=== PATIENT | male | born 1945 | race Caucasian/White ===

== ENCOUNTER → 2016-04-17 | Outpatient (CLI) | payer BC ==
[~2016-04-17] MED LIST: GFNSR600 PO; [UNRECOGNIZED DRUG - CODE] PO
[2016-04-17 17:40] LABS: URINE APPEARANCE CLEAR (CLEAR); URINE BILIRUBIN NEG (NEG); URINE COLOR YELLOW; URINE NITRITE NEG (NEG); URINE SPECIFIC GRAVITY 1.017 (1.000-1.030); UROBILINOGEN NEG (NEG); ZZUR CULT IF INDIC CLEAN CATCH NO
[2016-04-17 17:54] LABS: MANUAL MICROSCOPIC REQUIRED? NO; REVIEW REQ? NO
== END | disposition home or self-care (01) ==
LOC: C.LAB1850 16:05
PROVIDERS: ATTEND Internal Medicine
DX: R30.0 Dysuria (principal)

== ENCOUNTER → 2017-05-02 | Outpatient (CLI) | payer BC ==
[2017-05-02 12:08] LABS: BASO % 0.8 %; BASO ABS # 0.06 K/uL (0-0.2); EOS % 3.1 %; EOS ABS # 0.22 K/uL (0-0.5); HEMATOCRIT 44.6 % (42-52); HEMOGLOBIN 15.5 g/dL (14.0-18.0); IG# 0.02 K/uL (0.00-0.02); LYMPH % 38.7 %; LYMPH ABS # 2.76 K/uL (1.2-3.4); MEAN CELL VOLUME 90.8 fL (80-100); MEAN CORPUSCULAR HEMOGLOBIN 31.6 pg (25-34); MEAN CORPUSCULAR HGB CONC 34.8 g/dl (32-36); MEAN PLATELET VOLUME 10.3 fL (7.4-10.4); MONO % 11.8 %; MONO ABS # 0.84 K/uL (0.11-0.59); NEUT % 45.3 %; NEUT ABS # 3.24 K/uL (1.4-6.5); PLATELET COUNT 235 K/uL (130-400); RED CELL DISTRIBUTION WIDTH CV 13.2 % (11.5-14.5); RED CELL DISTRIBUTION WIDTH SD 43.3 fL (36.4-46.3); WHITE BLOOD COUNT 7.14 K/uL (4.8-10.8)
[2017-05-02 12:33] LABS: BLOOD UREA NITROGEN 21 mg/dl (7-18); CALCIUM 9.8 mg/dl (8.5-10.1); CARBON DIOXIDE 32 mmol/L (21-32); CHOLESTEROL 293 mg/dl (0-200); CREATININE 1.14 mg/dl (0.60-1.40); GLUCOSE 113 mg/dl (70-99); POTASSIUM 3.4 mmol/L (3.5-5.1); SODIUM 138 mmol/L (136-145)
[2017-05-02 12:43] LABS: LDL CHOLESTEROL CALCULATED 206 mg/dl
[2017-05-02 12:56] LABS: HEMOGLOBIN A1C 5.9 % (4.5-5.6)
== END | disposition home or self-care (01) ==
LOC: C.LAB1850 10:06
PROVIDERS: ATTEND Internal Medicine
DX: E03.9 Hypothyroidism, unspecified (principal); I10 Essential (primary) hypertension

== ENCOUNTER → 2017-07-10 | Outpatient (CLI) | payer BC ==
[2017-07-10 10:17] LABS: BASO % 0.8 %; BASO ABS # 0.06 K/uL (0-0.2); EOS % 3.4 %; EOS ABS # 0.25 K/uL (0-0.5); HEMATOCRIT 42.3 % (42-52); HEMOGLOBIN 14.7 g/dL (14.0-18.0); IG# 0.04 K/uL (0.00-0.02); LYMPH % 43.8 %; LYMPH ABS # 3.24 K/uL (1.2-3.4); MEAN CELL VOLUME 90.6 fL (80-100); MEAN CORPUSCULAR HEMOGLOBIN 31.5 pg (25-34); MEAN CORPUSCULAR HGB CONC 34.8 g/dl (32-36); MEAN PLATELET VOLUME 9.4 fL (7.4-10.4); MONO % 10.8 %; NEUT % 40.7 %; NEUT ABS # 3.01 K/uL (1.4-6.5); PLATELET COUNT 225 K/uL (130-400); RED CELL DISTRIBUTION WIDTH CV 13.1 % (11.5-14.5); RED CELL DISTRIBUTION WIDTH SD 42.8 fL (36.4-46.3)
== END | disposition home or self-care (01) ==
LOC: C.LAB1850 09:23
PROVIDERS: ATTEND Internal Medicine
DX: E78.00 Pure hypercholesterolemia, unspecified (principal)

== ENCOUNTER 2024-05-06 06:36 | Observation (INO) ==
--- NOTE | 2024-04-07 12:46 | PAT Medication Instructions ---
Medication Instructions Date of Service April 07, 2024 Home Medications Medication Instructions Recorded azelastine 137 mcg (0.1 %) nasal 1 spray intranasal BID #30 mL 03/21/24 spray xauhhjzw-kwc-njsfue 5 mg-zeaxanth 1 mg-bilberry 7.5 mg-herbal capsule (Macular Health Formula) 1 cap PO QAM azelastine 137 mcg (0.1 %) nasal spray 1 spray intranasal BID atorvastatin 40 mg tablet (Lipitor) 40 mg PO HS fluticasone propionate 50 mcg/actuation nasal spray,suspension (Flonase Allergy Relief) 2 spray intranasal DAILY lubiprostone 8 mcg capsule (Amitiza) 8 mcg PO DAILY PRN Constipation olmesartan 20 mg tablet 20 mg PO QAM sildenafil 100 mg tablet (Viagra) 100 mg PO DAILY PRN sexual activity STOP taking 2 weeks before surgery (or as soon as possible if surgery is within 2 weeks) [id number] 5 mg-zeaxanth 1 mg-bilberry 7.5 mg-herbal capsule (Macular Health Formula) 1 cap PO QAM DO NOT take the morning of surgery lubiprostone 8 mcg capsule (Amitiza) 8 mcg PO DAILY PRN Constipation olmesartan 20 mg tablet 20 mg PO QAM sildenafil 100 mg tablet (Viagra) 100 mg PO DAILY PRN sexual activity Take morning of surgery With a small sip of water, OTHERWISE NOTHING TO EAT OR DRINK AFTER MIDNIGHT: azelastine 137 mcg (0.1 %) nasal spray 1 spray intranasal BID fluticasone propionate 50 mcg/actuation nasal spray,suspension (Flonase Allergy Relief) 2 spray intranasal DAILY Take evening before surgery azelastine 137 mcg (0.1 %) nasal spray 1 spray intranasal BID atorvastatin 40 mg tablet (Lipitor) 40 mg PO HS lubiprostone 8 mcg capsule (Amitiza) 8 mcg PO DAILY PRN Constipation (if needed) Other Notes If you have any questions please call us at [phone] or [phone] or [phone] or [phone]
--- NOTE | 2024-04-16 15:06 | Anesthesiology Consultation ---
Date of Service April 16, 2024 Assessment & Plan (1) Encounter for pre-operative examination: Chart Review Chart Review: Acceptable Risk for Surgery and Patient seen in Pre Admission Testing Pt currently scheduled as 23 hours observation. If surgeon decides to change patient to Same Day Joint, patient would be acceptable risk for TKA, pending patient is motivated, has good support and surgeon's office completes Same Day Joint Program preop requirements. Per PAT appt on 04/16/24, no recent illness/disease exposures, or recent illness/disease positive tests. Sinus pressure, headache, dizziness- currently on abx- symptoms mildly improved but still present. Will follow up with ENT/PCP. Will leave to surgeon's discretion if preop Covid testing needed. Patient educated that symptoms will need resolved by DOS (patient voices understanding and will call if symptoms persist or get worse) History Surgery Operation Date: 05/06/24 08:50 Proposed Procedures p Right Total Knee Arthroplasty - Anibal Mercado MD Height/Weight Height: 5 ft 7 in Weight: 85.6 kg Allergies Allergy/AdvReac Type Severity Reaction Status Date / Time NSAIDS (Non-Steroidal AdvReac Severe caused Verified 04/07/24 11:54 Anti-Inflamma fluid overload Medications Home Medications Medication Instructions Recorded Confirmed Last Taken qtbdccue-lev-moggue 5 mg-zeaxanth 1 cap PO QAM 10/01/20 04/07/24 12/08/22 1 mg-bilberry 7.5 mg-herbal capsule ([employer] [facility] Formula) azelastine 137 mcg (0.1 %) nasal 1 spray intranasal BID #30 mL 03/21/24 04/07/24 Unknown spray atorvastatin 40 mg tablet (Lipitor) 40 mg PO HS 04/07/24 04/07/24 Unknown fluticasone propionate 50 2 spray intranasal DAILY 04/07/24 04/07/24 Unknown mcg/actuation nasal spray,suspension (Flonase Allergy Relief) lubiprostone 8 mcg capsule 8 mcg PO DAILY PRN Constipation 04/07/24 04/07/24 Unknown (Amitiza) olmesartan 20 mg tablet 20 mg PO QAM 04/07/24 04/07/24 Unknown sildenafil 100 mg tablet (Viagra) 100 mg PO DAILY PRN sexual activity 04/07/24 04/07/24 Unknown Past Medical History Medical History Chronic rhinitis Constipation Dysphagia "1-2x a week" as per patient no recent issues per patient at 04/16/24 PAT appt Hearing loss no hearing aid History of anesthesia reaction unable to void following hernia surgery, required cath/stent HLD (hyperlipidemia) HTN (hypertension) Hx of nephrotic syndrome 2012 - PCP Monitoring - no issues since Macular degeneration "Pre" as per patient Osteoarthritis Prediabetes Trochanteric bursitis Intermittent issues Exercise / Class Metabolic Activity II 4-5 Yardwork/Stairs/Walk up hill (one flight of stairs - no chest pain or SOB ) Past Family History Family History Father COPD (chronic obstructive pulmonary disease) Other No family history of adverse response to anesthesia Denies family history of Cancer Past Surgical History Surgical History H/O right inguinal hernia repair x 2 History of incision and drainage History of tonsillectomy Hx of colonoscopy (2021) Hx of LASIK Past Anesthesia History No Hx of Anesthesia Complications (with exception to urinary retention with previous hernia surgery ) and No Family Hx of Anesthesia Complications History of PONV No Hx of PONV and Hx of Motion Sickness (on boats ) Social History Smoking Status: Never smoker Do You Dip or Chew Tobacco: No Hx Alcohol Use: No Hx Substance Use: No substance use type: does not use Review of Systems - Chronic sinus/allergy issues- chronic nasal congestion- aggravated the past few weeks with cough- currently on abx- minimal improvement- following with PCP and ENT - Rare reflux- diet dependent Patient denies chest pain, shortness of breath, dyspnea on exertion, wheezing, palpitations. No hx of seizures, stroke, CT, apnea/snoring. No hx of blood clots or blood transfusions Physical Exam Vital Signs VITALS BP 112/71 P 57 TEMP 97.8 SP02 94% RESP 16 Constitutional no acute distress ENMT Mouth: no TMJ clicking Thyromental Distance: > or= 3.5 Finger Breadths (3.5) Mallampati Class: II Neck + limited neck extension (mild) Respiratory normal respiratory effort; no respiratory distress Auscultation: lungs clear to auscultation bilaterally; no wheezes Cardiovascular Rate/Rhythm: regular rate and regular rhythm Heart Sounds: no murmur Vessels: no carotid bruit Musculoskeletal Spine: + pain with cervical ROM (mild) Extremities: extremities normal to inspection Psychiatric Orientation: alert Lab Results Anesthesia Preop Results Results Anesthesia Widget: WBC 7.54 K/ul (4.8-10.8) 04/16/24 Hgb 14.0 g/dl (14.0-18.0) 04/16/24 Hct 42.0 % (42.0-52.0) 04/16/24 Plt 222 K/uL (130-400) 04/16/24 Na 141 mmol/L (136-145) 04/16/24 K 4.4 mmol/L (3.5-5.1) 04/16/24 Cl 108 mmol/L (98-107) H 04/16/24 CO2 26 mmol/L (21-32) 04/16/24 BUN 23 mg/dl (6-23) 04/16/24 Creat 1.10 mg/dl (0.6-1.4) 04/16/24 Glucose Level 101 mg/dl (70-99(Fasting)) H 04/16/24 PT 10.5 Seconds (9.0-12.0) 04/16/24 PTT 27 Seconds (21-31) 04/16/24 INR 1.0 (0.9-1.1) 04/16/24 HA1c 6.1 % (4.5-5.6) H 03/17/24 Urine Color Yellow 03/17/24 Urine Appearance Clear (Clear) 03/17/24 Urine pH 5.5 (4.5-7.5) 03/17/24 Urine Specific [place] 1.020 (1.000-1.030) 03/17/24 Urine Protein Negative (Negative) 03/17/24 Urine Glucose (UA) Negative (Negative) 03/17/24 Urine Ketones Negative (Negative) 03/17/24 Urine Blood Negative (Negative) 03/17/24 Urine Nitrite Negative (Negative) 03/17/24 Urine Bilirubin Negative (Negative) 03/17/24 Urine Urobilinogen Negative (Negative) 03/17/24 Urine Leukocyte Esterase Negative (Negative) 03/17/24 Blood Type A Positive 04/16/24 Antibody Screen NEGATIVE 04/16/24 Testing Electrocardiogram Date: 04/16/24 SB with 1st degree AVB at 52bpm Otherwise normal EKG per cardio Chest X-Ray Date: 04/16/24 Findings: + NAD
--- NOTE | 2024-05-01 13:37 | History & Physical Report ---
Date of Service May 01, 2024 Assessment & Plan (1) Osteoarthritis of knees, bilateral: 78-year-old male with bilateral knee DJD the right side more symptomatic than the left. Is failed conservative treatment. The shots do still help the left knee but not the right. He would like to proceed with right knee replacement. Plan: Working to take him to the operating room and do a right knee replacement. The [place] this procedure explained and he understands. Informed consent was obtained. He is got some borderline kidney function. Were any use Xarelto for DVT prophylaxis to eliminate any toxicity to the kidneys. He is planned to be discharged to home with some home health. He has a significant other can assist in his care. (2) Recurrent sinus infections: (3) Mixed hyperlipidemia: (4) Prediabetes: History of Present Illness Chief Complaint: . Right knee pain. Primary Care Provider: Brittany Cahney MD . The patient is a 78-year-old gentleman who presents for surgical treatment his right knee. Is got a long history of bilateral knee pain and discomfort describes gotten worse over the past several years. Has been following with injections intermittently which would become less successful. She has had both both steroid shots and viscosupplementation. They seem to help the left knee a bit more than the right. Pain is mostly medial. The more he is up and onto more it hurts. Seems like his pain has been progressing. He would like to have his knees fixed. Allergies Allergy/AdvReac Type Severity Reaction Status Date / Time NSAIDS (Non-Steroidal AdvReac Severe caused Verified 04/07/24 11:54 Anti-Inflamma fluid overload Home Medications Medication Instructions Recorded Confirmed Type nchxbodh-zfh-oxrdkr 5 mg-zeaxanth 1 cap PO QAM 10/01/20 04/07/24 History 1 mg-bilberry 7.5 mg-herbal capsule (Macular Health Formula) azelastine 137 mcg (0.1 %) nasal 1 spray intranasal BID #30 mL 03/21/24 04/07/24 Rx spray atorvastatin 40 mg tablet (Lipitor) 40 mg PO HS 04/07/24 04/07/24 History fluticasone propionate 50 2 spray intranasal DAILY 04/07/24 04/07/24 History mcg/actuation nasal spray,suspension (Flonase Allergy Relief) lubiprostone 8 mcg capsule 8 mcg PO DAILY PRN Constipation 04/07/24 04/07/24 History (Amitiza) olmesartan 20 mg tablet 20 mg PO QAM 04/07/24 04/07/24 History sildenafil 100 mg tablet (Viagra) 100 mg PO DAILY PRN sexual activity 04/07/24 04/07/24 History Past Med/Surg History Problem List Encounter for pre-operative examination Chronic rhinitis Dysfunction of both eustachian tubes Recurrent sinus infections Osteoarthritis of CMC joint of thumb Hand pain Trochanteric bursitis of both hips Constipation Dysphagia Erectile dysfunction History of nephrotic syndrome Osteoarthritis of knees, bilateral Primary hypertension Prediabetes Mixed hyperlipidemia Lumbar spondylosis Medical History Hearing loss no hearing aid Hx of nephrotic syndrome 2012 - PCP Monitoring - no issues since Prediabetes Macular degeneration "Pre" as per patient Dysphagia "1-2x a week" as per patient no recent issues per patient at 04/16/24 PAT appt Constipation Chronic rhinitis Trochanteric bursitis Intermittent issues Osteoarthritis HTN (hypertension) HLD (hyperlipidemia) History of anesthesia reaction unable to void following hernia surgery, required cath/stent Surgical History Hx of colonoscopy (2021) Hx of LASIK History of incision and drainage History of tonsillectomy H/O right inguinal hernia repair x 2 Family History Father COPD (chronic obstructive pulmonary disease) Other No family history of adverse response to anesthesia Denies family history of Cancer Social History Smoking Status: Never smoker Second Hand Exposure: No; Do You Dip or Chew Tobacco: No; Hx Alcohol Use: No Hx Substance Use: No Preferred Language: Pashto Communication Ability: Effective Visual Impairment: No Limitations Hearing Ability: Normal Superintendent Horticulture Required: No Beliefs That Will Affect Care: None marital status: Current Living Situation: Alone current occupational status: retired Feels Safe at Home: Yes Dental Care, Regularly: Yes Seatbelt Use: always Sunscreen Use: Yes Assistive Devices: Glasses Review of Systems All systems reviewed & are unremarkable except as noted in HPI & below. Physical Exam . Physical examination reveals a pleasant elderly male. Looks younger than his stated age. Examination of the right knee reveals patient ambulates independently. Is got varus alignment to his knee with a little bit of varus thrust with weightbearing. He is got bony hypertrophy medially. Small knee effusion. Range of motion 10-1 20. No particular pain with hip motion. Constitutional WD/WN, vitals as above Neck trachea midline, no thyromegaly Respiratory normal respiratory effort, lungs clear to auscultation Cardiovascular RRR, no murmur, no edema Gastrointestinal (Abdomen) normal bowel sounds, soft, nontender, no hepatosplenomegaly Results & Data Results & Data Laboratory Results . Diagnostic Findings . X-rays of the right knee were reviewed. Shows advanced right knee DJD. Got complete loss of the medial joint space. He is got osteophytes medially and laterally. He is got similar but less severe disease in his left knee which appears to be more lateral compartment. PG Care Time/CCT Total # of Minutes Spent Total Time Spent with Patient: Total time spent is greater than 50% in coordination of care (as documented) at patient's floor/unit and/or counseling patient: Coding Level of Care Code None Diagnoses Osteoarthritis of knees, bilateral M17.0 Recurrent sinus infections J32.9 Mixed hyperlipidemia E78.2 Prediabetes R73.03
[~2024-05-06 06:36] MED LIST changes: +BUPIVACAINE 0.5 % 5 MG/1 ML PF 10ML VIAL ONE; -GFNSR600 PO; +ROPIVACAINE 0.5% 5 MG/ML 30 ML VIAL ONE; -[UNRECOGNIZED DRUG - CODE] PO
--- NOTE | 2024-05-06 06:50 | History & Physical Bridge Note ---
Date of Service May 06, 2024 History & Physical Bridge Note I have examined the patient, reviewed the History & Physical and in the interval since the performance of the History & Physical I have noted the following changes of clinical significance: no changes noted
[2024-05-06] MEDS ORDERED: fentaNYL citrate PF 100 MCG/2 ML VIAL ONE (07:23)
[2024-05-06] MEDS ORDERED: MIDAZOLAM HCL 1 MG/ML 2ML VIAL ONE (07:23)
[2024-05-06] MEDS: LR 500ML BOLUS, THEN 15ML/HR IV SCH (07:28)
[2024-05-06] MEDS: LR 60ML/HR IV SCH (07:28)
[2024-05-06] MEDS: ACETAMINOPHEN 500 MG TAB PO SCH ×2 (07:29→13:33)
[2024-05-06] MEDS: dexAMETHasone**PF** 10 MG/ML VIAL IV SCH (07:30)
[2024-05-06] MEDS: CeleBREX 200 MG CAP PO SCH (07:30)
[2024-05-06] MEDS: FAMOTIDINE 20 MG TAB PO SCH (07:30)
[2024-05-06] MEDS: METOCLOPRAMIDE HCL 10 MG TABLET PO SCH (07:30)
[2024-05-06] MEDS ORDERED: fentaNYL citrate PF 100 MCG/2 ML VIAL IV PRN (08:21)
[2024-05-06] MEDS ORDERED: ATROPINE SULFATE 0.1 MG/ML 10ML SYR IV PRN (08:21)
[2024-05-06] MEDS ORDERED: ONDANSETRON INJ 2 MG/ML 2 ML VIAL IV PRN ×2 (08:21→12:22)
[2024-05-06] MEDS ORDERED: ePHEDrine sulfate 50 MG/ML AMP IV PRN (08:21)
[2024-05-06] MEDS: ceFAZolin 2000MG 2,000 MG/15 ML SYR IV SCH ×2 (08:58→17:57)
[2024-05-06] MEDS ORDERED: PROPOFOL IV EMULSION 10 MG/ML 100 ML VIAL IV ONE (09:21)
[2024-05-06] MEDS ORDERED: ONDANSETRON INJ 2 MG/ML 2 ML VIAL ONE (09:21)
[2024-05-06] MEDS: ROPIV 0.5% 246mg, Ketorolac 30mg, EPINEPHrine 0.5mg in NSS INFIL SCH (09:34)
[2024-05-06] MEDS: ORTHO JOINT ANESTHETIC ONE (09:34)
[2024-05-06] MEDS: TRANEXAMIC ACID 1,000 MG **IV Intra-op IV SCH (09:40)
--- NOTE | 2024-05-06 10:40 | Operative Report ---
PG Post Operative Report Pre & Post Diagnosis Operation Date: 05/06/24 08:50 Pre-Op Diagnosis: Right Knee Osteoarthritis Post-Op Diagnosis: Right Knee Osteoarthritis I identified the patient and participated in the time-out.: Yes Procedure Operation Date: 05/06/24 08:50 Actual Procedures p Right Total Knee Arthroplasty(Right) - Anibal Mercado MD Surgeon Anibal Mercado MD Customer Support Assistant Ky Forrester PA-C Estimated Blood Loss 50 Findings Consistent with Post-Op Diagnosis Operative findings were advanced right knee tricompartment DJD. He had grade 4 changes in all 3 compartments most severe in the medial side. Specimens Right knee sent for pathology Anesthesia Type Spinal MAC Complications none Disposition Accompanied Patient To Recovery: No Indications Patient is an 79-year-old gentleman was had a several year history of increasing right knee pain discomfort described to gotten worse over time. He failed all conservative measures. X-rays show advanced medial compartment arthritis. He elected proceed with right total knee arthroplasty. Description of Procedure Operative implants consist of: 1 Biomet Vanguard size 65 right posterior stabilized femoral component. 2. Biomet size 71 tibial tray. 3. 10 mm posterior stabilized polyethylene insert. 4. 31 x 8 all poly patella. The patient was taken to the op room, identified, placed on the operating table in the supine position. All conductors were appropriately padded. IV antibiotics fibra anesthesia team. A spinal anesthetic and been implemented in the holding area. Right thigh tent was then placed. The right lower extremity was then prepped and draped in usual sterile fashion. The right leg was elevated and exsanguinated with use of an Esmarch and a turn was placed at 300 mmHg. An anterior approach of the right knee was then performed to longitudinal incision centered over the patella. Sharp dissection was Through subcutaneous tissue down the extensor mechanism. A medial parapatellar arthrotomy incision was made. Some subperiosteal dissection was carried out medially. The fat pad was resected from each patella tendon. Lateral patellofemoral ligament was released. Patella subluxated laterally and the knee was flexed. The osteophytes taken off distal femur. The ACL and PCL were then released from the distal femur and the tibia was subluxated anteriorly. The external tibial alignment jig was then placed on the anterior face of the tibia and adjusted 14 mm medially. The proximal tibial cut was made remove about 2 mm of bone from the medial side. The tibia was sized to a size 71. Attention drawn the femur. The distal femur was entered with a sharp drill. Intramedullary canal was suction. A right 6 degree valgus cutting guide was placed. The distal femoral cutting block was pinned in place. Distal femoral cut was made take an additional 3 mm of bone off distal femur. Femur was then sized to a size 65. The AP cutting block was pinned parallel to the epicondylar axis which was 4 degrees of external rotation. The anterior cut, anterior chamfer, posterior cut, posterior chamfer cuts were made. The box cutting guide was placed and adjusted slightly laterally. The box cut was made. The knee was flexed. The remnants of the medial and lateral menisci were excised. The osteophytes were taken off the posterior aspect the femur. A trial femoral component was placed. The tibial tray was pinned in Nae external rotation and the drill and stem punch were used to create defect in proximal tibia for the tibial tray. Knee was then trialed and the 10 mm insert fit most appropriately. Attention drawn the patella. The patella was cleaned of all soft tissue. Patella thickness measured 21 mm in thickness was cut down to 13. Was sized to a size 31 patella. The lug holes were drilled for 31 patella. The lateral osteophytes removed. Patella button was placed. Knee was taken through range of motion and the patella tracked nicely with no thumbs test. Attention was then drawn toward placing the permanent components. All trial components were removed. Bone plug was placed in the distal femur limit blood loss. A double batch Palacos G cement was mixed. A Biomet Vanguard size 65 right posterior stabilized femoral component, a size 71 tibial tray, a 10 mm posterior stabilized polyethylene insert, and a 31 x 8 all poly patella then cemented in place. The knee was brought out into full extension till cement hardened. Final cement check was then performed. The pericapsular tissues were injected with total 100 cc of Ortho mix. The patient did receive 1 g of tranexamic acid. The tourniquet was then let down for final turn time 52 minutes. Hemostasis surgeries electrocautery. The extensor Metros then closed with combination 1 PDS suture #1 Vicryl suture in xlrhfh-jf-inysc fashion. The extensor mechanism was checked found to be intact and subcutaneous tissues then closed with 2 Dexon suture in buried erupted fashion skin was closed skin anant. Leg was then cleaned and dried and a sterile dressing was Xeroform, 4 fours, sterile cast padding, Geoffrey bandage were applied. Patient then transferred to the recovery room in stable condition. Patient tolerated procedure well and there were no complications. Ky Forrester, my physician data assistant, was present for the entire procedure. His assistance was essential and required for appropriate patient positioning, prepping and draping, surgical exposure, performing the technical details of the operation, placement the implants, closure of the wound, and placement of the sterile bandage. I attest to the content of the Intraoperative Record and any orders documented therein. Any exceptions are noted below.
--- NOTE | 2024-05-06 11:34 | XRay Report ---
XR knee RT 1 or 2V routine CLINICAL HISTORY: Surgical Post Op COMPARISON: None FINDINGS: 2 views of the right knee demonstrate evidence of a total knee replacement with satisfacto ry positioning and alignment of the prosthetic components. IMPRESSION: Satisfactory postop appearance ACT 112: Negative or not required by law. Electronically signed by: Abby Oliveros M.D. 05/06/2024 11:33 AM
--- NOTE | 2024-05-06 12:11 | Anesthesiology Progress Note ---
Date of Service May 06, 2024 Anesthesia Post Procedure Vital Signs Vital Signs: Temp Pulse Pulse Resp BP Pulse Ox O2 Del Method 05/06/24 11:50 86 20 112/58 L 94 Room Air 05/06/24 11:40 86 16 116/47 L 94 Room Air 05/06/24 11:30 81 16 114/47 L 96 Room Air 05/06/24 11:20 88 15 97/66 L 98 Room Air 05/06/24 11:10 93 H 16 119/55 L 97 Room Air 05/06/24 11:00 96 H 22 102/48 L 98 Room Air 05/06/24 10:50 91 H 23 117/50 L 98 Room Air 05/06/24 10:40 95 H 15 105/44 L 97 Room Air 05/06/24 10:33 96.8 F L 92 H 20 116/48 L 96 Room Air 05/06/24 07:15 97.9 F 79 20 130/81 98 Room Air Transfer of Care Handoff Completed per policy Notes Mental Status: alert / awake / arousable and participated in evaluation Patient Amnestic to Procedure: Yes Nausea / Vomiting: adequately controlled Pain: adequately controlled Airway Patency, RR, SpO2: stable & adequate BP & HR: stable & adequate Hydration State: stable & adequate Neuraxial Anesthesia: was administered and sensory block is resolving Anesthetic Complications: no major complications apparent and Pt Satisfied with anesthetic care
[2024-05-06] MEDS ORDERED: ALUMINUM/MAGNESIUM SUSP 30 ML UDC PO PRN (12:22)
[2024-05-06] MEDS ORDERED: bisacodyL 10 MG SUPP PR PRN (12:22)
[2024-05-06] MEDS ORDERED: METOCLOPRAMIDE HCL INJ 5 MG/ML 2 ML VIAL IV PRN (12:22)
[2024-05-06] MEDS ORDERED: NALOXONE HCL 0.4 MG/1 ML VIAL/CARP IV PRN (12:22)
[2024-05-06] MEDS ORDERED: HYDROmorphone INJ 0.5 MG/0.5 ML SYR IV PRN (12:22)
[2024-05-06] MEDS ORDERED: NON-FORMULARY MEDICATION (Sildenafil [Viagra] 100 mg tablet) PO PRN (12:22)
[2024-05-06] MEDS ORDERED: MAGNESIUM HYDROXIDE SUSP 30 ML UDC PO PRN (12:22)
[2024-05-06] MEDS ORDERED: oxyCODONE HCL IR 5 MG TAB (IMMEDIATE RELEASE) PO PRN (12:22)
[2024-05-06] MEDS ORDERED: LUBIPROSTONE 8 MCG CAP PO PRN (12:49)
[2024-05-06] MEDS: KETOROLAC TROMETHAMINE 15 MG/ML VIAL IV SCH (13:33)
[2024-05-06] MEDS: TRANEXAMIC ACID / 0.7% NACL 1,000 MG/100 ML BAG IV SCH (17:58)
[2024-05-06] MEDS: ASCORBIC ACID 500 MG TAB PO SCH (18:01)
[2024-05-06] MEDS ORDERED: Nursing to Pharmacy Communication SCH (19:33)
[2024-05-06] MEDS: AZELASTINE HCL 0.1% NASAL 200 SPRAYS/27,400 MCG BTL NAE SCH (20:48)
[2024-05-06] MEDS: ATORVASTATIN 40 MG TAB PO SCH (20:49)
[2024-05-06] MEDS: SENNA 8.6 MG TAB PO SCH (20:49)
[2024-05-06] MEDS: DOCUSATE SODIUM 100 MG CAP PO SCH (20:49)
[2024-05-06] MEDS ORDERED: SENNA 8.6 MG TAB PO SCH (21:00)
[2024-05-06 22:29] VITALS: RESP 18
[2024-05-07 07:44] LABS: Hematocrit (blood only) 32.7 % (42.0-52.0); Hemoglobin 11.1 g/dl (14.0-18.0); Mean Corpuscular Hemoglobin 30.7 pg (25.0-34.0); Mean Corpuscular Hgb Conc 33.9 g/dL (32.0-36.0); Mean Corpuscular Volume 90.6 fL (80.0-100.0); Mean Platelet Volume 9.9 fL (9.4-12.4); Platelet Count 177 K/uL (130-400); RDW Coefficient of Variation 13.2 % (11.5-14.5); RDW Standard Deviation 43.7 fL (36.4-46.3); Red Blood Count 3.61 M/uL (4.70-6.10); White Blood Count 13.81 K/ul (4.8-10.8)
--- NOTE | 2024-05-07 07:45 | Orthopedic Progress Note ---
Date of Service May 07, 2024 Assessment & Plan (1) Status post total right knee replacement: Pain controlled He is looking forward to going home. Plan is for d/c home today with home health, after therapy. Continue dvt prophylaxis: teds, scd's, and xarelto PT/OT wbat, total knee protocol. Subjective .79 year old patient POD 1 from right tka. Pain controlled. Did not sleep well last night due to his roommate. Review of Systems All systems reviewed & are unremarkable except as noted in HPI & below. Physical Exam . alert and oriented. NAD VSS Right leg: dressing clean, dry, intact. Able to dorsiflex and plantarflex. NVI. Able to do straight leg raise. Results & Data Results & Data Laboratory Results . Diagnostic Findings . PG Care Time/CCT Total # of Minutes Spent Total Time Spent with Patient: Total time spent is greater than 50% in coordination of care (as documented) at patient's floor/unit and/or counseling patient: Coding Level of Care Code 42646 Post Operative Follow-Up Diagnoses Status post total right knee replacement Z96.651
[2024-05-07 08:01] LABS: BUN Creatinine Ratio 23.5 (10-20); Calcium 8.7 mg/dl (8.6-10.3); Creatinine Clr Calc Pharmacy 51.7 ml/min; Potassium 4.1 mmol/L (3.5-5.1)
[2024-05-07] MEDS: MULTIVITAMIN TAB PO SCH (08:31)
[2024-05-07] MEDS: LOSARTAN POTASSIUM 50 MG TAB PO SCH (08:31)
[2024-05-07] MEDS: TAMSULOSIN HCL 0.4 MG CAP PO SCH (08:31)
[2024-05-07] MEDS: dexAMETHasone 10 MG in SYRINGE 0 ML IV SCH (08:31)
[2024-05-07] MEDS: FLUTICASONE PROPIONATE NA SPR 16 GM BTL NAE SCH (08:32)
[2024-05-07] MEDS ORDERED: NON-FORMULARY MEDICATION (Mv-Mn-Lutein-Zeax-Bilber-Hb277 [Macular Health Formula] 5-1-7.5 PO SCH (09:00)
[2024-05-07] MEDS: RIVAROXABAN 10 MG TABLET PO SCH (11:08)
[2024-05-07 11:43] VITALS: BP 110/70; PULSE 80; TEMP 97.9; O2SAT 96
--- NOTE | 2024-05-08 15:37 | Discharge Summary ---
Date of Service May 08, 2024 Admission HPI (Per Admitting) . The patient is a 78-year-old gentleman who presents for surgical treatment his right knee. Is got a long history of bilateral knee pain and discomfort describes gotten worse over the past several years. Has been following with injections intermittently which would become less successful. She has had both both steroid shots and viscosupplementation. They seem to help the left knee a bit more than the right. Pain is mostly medial. The more he is up and onto more it hurts. Seems like his pain has been progressing. He would like to have his knees fixed. Admission Exam (Per Admitting) . Physical examination reveals a pleasant elderly male. Looks younger than his stated age. Examination of the right knee reveals patient ambulates independently. Is got varus alignment to his knee with a little bit of varus thrust with weightbearing. He is got bony hypertrophy medially. Small knee effusion. Range of motion 10-1 20. No particular pain with hip motion. Principal Diagnosis Same as "Discharge Diagnosis" noted below under Discharge Instructions. Discharge Exam . alert and oriented. NAD VSS Right leg: dressing clean, dry, intact. Able to dorsiflex and plantarflex. NVI. Able to do straight leg raise. Discharge Data Procedures Performed Operation Date: 05/06/24 08:50 Actual Procedures p Right Total Knee Arthroplasty(Right) - Anibal Mercado MD Ordered Studies 05/06/24 05:00 US - OR guided needle placemen Routine Hospital Course (1) Status post total right knee replacement: This is a 79 year old patient admitted on 05/06/24 and underwent total knee arthroplasty. He tolerated the procedure well and there were no complications. Transferred to the PACU post op and later to the orthopedic floor for further care. He was given ancef for antibiotic prophylaxis. He was also given LEONIDAS stockings, SCDs, and xarelto for DVT prophylaxis. Hemoglobin, hematocrit, and vital signs were monitored during his hospital stay and remained stable. Did not require any blood transfusions. There were no complications during his hospital stay. By post op day #1 the patient was tolerating a regular diet, pain was reasonably controlled with oral pain medicine, and he was participating in physical therapy. On post op day #1 the patient was discharged home and set up with home health care. He was given printed discharge instructions including prescriptions for extra strength tylenol, xarelto, cefadroxil, zofran, senokot, flomax, and oxycodone. Continue physical therapy, weight bearing as tolerated. Continue LEONIDAS stockings. Follow up approximately 2 weeks post op or sooner if there are problems or concerns. Discharge Plan Discharge Items Patient Disposition: Home - Home Health Services Reason For Visit: Right Knee Osteoarthritis Discharge Diagnosis: right total knee replacement Activity: Per Instructions section Non-emergency contact: Surgeon Call non-emergency contact if: you have any medication questions, your pain is not controlled, you have a fever, your wound has increased redness and your wound has increased drainage Follow-up/Referrals: Brittany Chaney MD [Primary Care Provider] - Diet: Regular Addtl Attending Provider Instructions: ACTIVITY RECOMMENDATIONS: Diet: * You may resume previous diet. Physical Therapy: * You will go to physical therapy three times each week for four to six weeks after your surgery in order to regain your knee range of motion and to retrain your knee to work properly. * It is just as important to make sure you are getting your knee perfectly straight as it is to regain your knee bend. * Taking a pain pill an hour before therapy can help you have a more productive and comfortable therapy session. Home Exercise: * You were shown a series of exercises (heel props, heel slides, etc.) in the hospital. Do these exercises three to four times each day including the exercises you were shown in physical therapy. Walking: * Get up and walk several times each day. For the first four weeks, try not to stand or walk for more than one hour at a time. If you do stand or walk for more than one hour, you will not hurt anything, but your knee and leg will likely swell. * As you feel comfortable, you may change from the walker or crutches to a cane and then to independent walking. MEDICATIONS: New Medicine: * You will likely be taking one or more of these medications: 1. Oxycodone - A quick and shorter-acting pain medication. Take one to two tablets every six hours to lessen your pain. 2. xarelto (rivaroxaban) - Thins your blood to lessen the chance of forming a blood clot. * The most common side effects of pain medicine and iron are nausea and constipation. If nausea or constipation is too much of a problem or if you have any questions about your new medicines or doses, call [facility] at . We will try to help you manage these issues. "VERY IMPORTANT TO READ AND REVIEW" Pain: * The immediate post-operative period after knee replacement surgery is often quite painful. * You are given a prescription for pain medicine. You should take it, as directed, when you need it, especially before physical therapy and before going to bed. Pain that interferes with sleep is very common and can last several months. * You will likely need pain medicine for the first four to six weeks. It will not stop all of the pain. The pain will lessen and as you feel better, you may change to milder pain medicine such as Tylenol. * The most common side effects of pain medicine are nausea and constipation, so don't take more than you need. SPECIAL CARE INSTRUCTIONS: TEDs/Elastic Stockings: * The white elastic stockings help limit swelling and prevent blood clots from forming in your legs. The more you wear them, the more they work. * Wear them for six weeks after knee replacement surgery and four weeks after partial knee replacement. Incision Site Care: * Remove dressing postoperative day 2 and then shower. Keep direct shower pressure off the incision site. * After showering, cover suzy with dry gauze and change daily or more frequently if the dressing is getting saturated with drainage. * Use the LEONIDAS stockings to hold dressing in place. DO NOT apply tape on the skin. * May completely stop using bandage if wound is dry and no drainage * Suzy are removed between 2 and 3 weeks post-op. If your follow-up appointment is made before 2 weeks, please have your appointment re- scheduled. It is too early to remove the suzy. Prevention of Infection: * Take antibiotics one hour before any dental cleaning, dental work, urological procedure, gastrointestinal procedure or any invasive surgery in order to prevent your new joint from getting infected. * You may get the antibiotics from the doctor performing the procedure or you may call our office at [phone] before and we will call in a prescription to the pharmacy of your choice. Things to Watch For: * Drainage from the incision site that occurs more than one week after your surgery. * Severely increased knee/leg pain or swelling. * Increased redness at the incision site. * Fever above 102 degrees Fahrenheit. * Unusual chest pain or shortness of breath. * Unusual pain or burning with urination. Call [facility] at [phone] with any of the above problems or if you have any questions about your medicines or recovery. FOLLOW UP VISIT: Make an appointment to see your doctor for approximately two weeks after surgery for a progress check and staple removal by calling the office at [phone]. Pending Studies at Discharge: No Stand-Alone Forms: [facility], Pain - Opioid Pain Management, Smoking Cessation Medications and DC Order Prescriptions: Continued oxycodone 5 mg tablet 5 - 10 mg PO Q6 PRN (Reason: pain) Qty: 40 0RF Rx Instructions: Take as needed for pain ondansetron 4 mg tablet,disintegrating 4 mg PO Q8 PRN (Reason: nausea) Qty: 20 1RF Rx Instructions: Take as needed for nausea sennosides [Senokot] 8.6 mg tablet 8.6 mg PO BID 14 Days Qty: 28 0RF Rx Instructions: Take two times a day to prevent/treat constipation acetaminophen [Tylenol Extra Strength] 500 mg tablet 1,000 mg PO TID 30 Days Qty: 180 0RF Rx Instructions: Take 3 times per day to lessen pain. Xarelto 10 mg tablet 10 mg PO DAILY 30 Days Qty: 30 0RF Rx Instructions: Take 1 tablet daily for 30 days to prevent blood clots tamsulosin [Flomax] 0.4 mg capsule 0.4 mg PO DAILY Qty: 7 0RF Rx Instructions: Begin night BEFORE surgery to prevent urinary retention cefadroxil 500 mg capsule 500 mg PO BID 7 Days Qty: 14 0RF Rx Instructions: Take 1 cap twice a day to prevent infection [facility] Formula 5-1-7.5 mg capsule 1 cap PO QAM azelastine 137 mcg (0.1 %) spray,non-aerosol 1 spray intranasal BID Qty: 30 3RF Rx Instructions: administer into each nostril atorvastatin [Lipitor] 40 mg tablet 40 mg PO HS sildenafil [Viagra] 100 mg tablet 100 mg PO DAILY PRN (Reason: sexual activity) Rx Instructions: administer 30 minutes to 4 hours before activity fluticasone propionate [Flonase Allergy Relief] 50 mcg/actuation spray,suspension 2 spray intranasal DAILY Rx Instructions: administer into each nostril olmesartan 20 mg tablet 20 mg PO QAM lubiprostone [Amitiza] 8 mcg capsule 8 mcg PO DAILY PRN (Reason: Constipation) [place]igo/Other Patient Handouts: DVT Post Op Prevention Admission Data Admit Date/Time: 05/06/24 10:34 Attending Provider: Anibal Mercado Admit Provider: Anibal Mercado Primary Care Provider: Brittany Chaney Other Providers: [facility],Home Health Other Interventions: Discharge Summary Assessment (RN) Last Done: 05/07/24 10:43
== END 2024-05-07 11:47 | disposition home health service (06) ==
LOC: ASU 06:36 → 3W 06:36
DX: M25.761 Osteophyte, right knee; I10 Essential (primary) hypertension; Z79.01 Long term (current) use of anticoagulants; E78.5 Hyperlipidemia, unspecified; Z79.899 Other long term (current) drug therapy; M17.0 Bilateral primary osteoarthritis of knee; R73.03 Prediabetes; J32.9 Chronic sinusitis, unspecified; Z88.1 Allergy status to other antibiotic agents